=== PATIENT | female | born 2005 ===

== ENCOUNTER → 2025-08-17 09:30 | Outpatient (BNV) | payer OTHER, SELFPAY | PROVIDERS: Visit Provider Internal Medicine | DX: I49.3 Ventricular premature depolarization (principal); I47.10 Supraventricular tachycardia, unspecified | CPT/HCPCS: 93244 ==

== ENCOUNTER → 2025-08-17 10:30 | Outpatient (REF) | payer OTHER, SELFPAY ==
--- NOTE | 2025-08-17 09:30 | HM_ITS ---
* Total monitoring time 7 days. * Underlying rhythm is sinus with an average rate of 76/Min. * Rare supraventricular ectopy. * Rare ventricular ectopy. * No significant pauses or high-grade AV blocks. * Patient marker used with sinus rhythm. * Rapid/fast heartbeat/dizziness in patient diary correlates with mild sinus tachycardia at 1 03/Min. MTDD
== END ==
LOC: HO.CARD 10:30
PROVIDERS: Visit Provider Emergency Medicine
DX: R00.2 Palpitations (principal)
CPT/HCPCS: 93242